=== PATIENT | male | born 1935 ===

== ENCOUNTER 2019-04-24 11:52 | Outpatient (CLI) | payer OTHER ==
[~2019-04-24] VITALS: Ht 152.4 cm; Wt 61.7 kg
== END 2019-04-24 13:00 | disposition home or self-care (01) ==
LOC: OFIC 805 11:52
DX: H90.3 Sensorineural hearing loss, bilateral (principal); R42 Dizziness and giddiness; H81.13 Benign paroxysmal vertigo, bilateral

== ENCOUNTER 2019-05-22 09:23 | Outpatient (CLI) | payer OTHER ==
[~2019-05-22] VITALS: Ht 152.4 cm; Wt 61.7 kg
== END 2019-05-22 12:24 | disposition home or self-care (01) ==
LOC: OFIC 805 09:23
DX: R42 Dizziness and giddiness (principal)